=== PATIENT | female | born 1995 ===

== ENCOUNTER 2021-01-17 11:52 | Emergency (ER) | payer MEDICAID, OTHER ==
[~2021-01-17] VITALS: Ht 160 cm; Wt 81.9 kg
[2021-01-17] MEDS ORDERED: SODIUM CHLORIDE FLUSH 10ML SYR IVF ONE (12:30)
[2021-01-17] MEDS ORDERED: ONDANSETRON 2MG/ML, 2ML IVPush ONE (12:30)
[2021-01-17] MEDS ORDERED: SODIUM CHLORIDE 0.9% 1,000ML IVBOLUS ONE (12:30)
[2021-01-17] MEDS ORDERED: ONDANSETRON 2MG/ML, 2ML ONE (12:41)
--- NOTE | 2021-01-17 12:43 | NUR ---
PT C/O STOMACH PAIN IN LOWER QUADRANTS. REPORTS NAUSEA AND VOMITING FOOD. REPORTS CP LAST NIGHT BUT SUBSIDED TODAY. DENIES SOB AND DIARRHEA,
[2021-01-17 12:45] LABS: BASOPHILS % (AUTO) 0 % (0-1); EOSINOPHILS % (AUTO) 0 % (1-7); LYMPHOCYTES % (AUTO) 4 % (22-44); MEAN CORPUSCULAR HEMOGLOBIN 29.3 pg (27.0-34.8); MEAN CORPUSCULAR HGB CONC 33.7 g/dL (32.4-35.8); MONOCYTES % (AUTO) 3 % (2-9); NEUTROPHILS % (AUTO) 93 % (42-75); PLATELET COUNT 284 x10^3/uL (130-400); RED BLOOD COUNT 4.81 x10^6/uL (3.82-5.3); RED CELL DISTRIBUTION WIDTH 12.9 % (9.6-15.2)
[2021-01-17 12:52] LABS: ALBUMIN 3.9 g/dL (3.4-5.0); ANION GAP 6 mmol/L (5-15); CALCIUM 8.5 mg/dL (8.5-10.1); CHLORIDE 109 mmol/L (98-107)
[2021-01-17 12:57] LABS: ALANINE AMINOTRANSFERASE 21 U/L (12-78); ALKALINE PHOSPHATASE 78 U/L (45-117); CREATININE 0.78 mg/dL (0.55-1.02); TOTAL PROTEIN 7.6 g/dL (6.4-8.2)
[2021-01-17 13:12] LABS: MD SCAN
[2021-01-17 14:03] LABS: MICROSCOPIC NOT IND
[2021-01-17] MEDS ORDERED: ACETAMINOPHEN 325 MG TABLET ONE (14:25)
[2021-01-17] MEDS ORDERED: ACETAMINOPHEN 325 MG TABLET PO ONE (14:30)
--- NOTE | 2021-01-17 14:47 | NUR ---
PT SLEEPING IN BED
[2021-01-17 15:47] VITALS: BP 102/64
== END 2021-01-17 15:59 | disposition home or self-care (01) ==
LOC: ED 13:37
DX: R11.2 Nausea with vomiting, unspecified (principal); R10.30 Lower abdominal pain, unspecified; R50.9 Fever, unspecified; R00.0 Tachycardia, unspecified
CPT/HCPCS: 36415; 80053; 81003; 83690; 84703; 85025; 96361; 96374; 99283; J2405; J7030; 82962